=== PATIENT | male | born 1970 | race Two or more races ===

== ENCOUNTER 2023-06-18 07:08 | Emergency (ER) | payer SELFPAY ==
[~2023-06-18] VITALS: Ht 160 cm; Wt 53.9 kg
[2023-06-18 07:57] VITALS: BP 127/75; PULSE 75; RESP 16; TEMP 97.9; O2SAT 98
[2023-06-18] MEDS ORDERED: POLY335015 PO (08:30)
[2023-06-18] MEDS ORDERED: HYDR25SU21 PR (08:30)
== END 2023-06-18 08:36 | disposition home or self-care (01) ==
LOC: ER 07:08
DX: K64.8 Other hemorrhoids (principal); Z79.899 Other long term (current) drug therapy